=== PATIENT | female | born 1985 | race African-American/Black ===

== ENCOUNTER 2017-08-31 02:40 | Inpatient (IN) | payer OTHER ==
[2017-08-31 03:12] LABS: BILIRUBIN,URINE NEGATIVE (NEG); CLARITY,URINE CLEAR; COLOR,URINE YELLOW; GLUCOSE,URINE NEGATIVE (NEG); NITRITE,URINE NEGATIVE (NEG); PROTEIN,URINE NEGATIVE (NEG-TRACE)
[2017-08-31 03:17] LABS: BACTERIA,URINE FEW /HPF (0-FEW); RBC,URINE OCC /HPF (0-2); SQUAMOUS EPITHELIAL CELL,UR MOD /LPF
[2017-08-31 03:18] LABS: BARBITURATES NEG (NEG); BENZODIAZEPINES NEG (NEG); CANNABINOIDS POS (NEG); COCAINE NEG (NEG); METHADONE NEG (NEG); OPIATES NEG (NEG); PHENCYCLIDINE NEG (NEG)
[2017-08-31 03:19] LABS: AMPHETAMINE/METHAMPHETAMINE NEG (NEG); ETHANOL, URINE NEG (NEG)
[2017-08-31] MEDS ORDERED: IV RINGERS,LACTATED 1000ML 1,000 ML IV (04:14)
[2017-08-31 04:15] LABS: NEG OBC AMNIO NEG; POS OBC AMNIO POS
[2017-08-31 04:16] LABS: AMNIO PT POSITIVE
[2017-08-31 05:08] LABS: HEMOGLOBIN 11.9 g/dL (12.0-15.5); MEAN CORPUSCULAR HEMOGLOBIN 31 pg (25-35); MEAN CORPUSCULAR HGB CONC 35 g/dL (31-37); MEAN CORPUSCULAR VOLUME 89 fL (79-100); PLATELET COUNT 212 x10^3/uL (140-400); RED BLOOD COUNT 3.84 x10^6/uL (3.50-5.40); RED CELL DISTRIBUTION WIDTH 13.1 % (11.5-14.5); WHITE BLOOD COUNT 6.6 x10^3/uL (4.0-11.0)
[2017-08-31] MEDS: IV RINGERS,LACTATED 1000ML 1,000 ML IV ×3 (07:30→18:38)
[2017-08-31] MEDS ORDERED: ZOLPIDEM 5 MG TABLET. PO (09:15)
[2017-08-31] MEDS ORDERED: OXYTOCIN 30 UNIT/500 ML PREMIX 500 ML IV (09:15)
[2017-08-31] MEDS ORDERED: diphenhydrAMINE ORAL ELIXIR 12.5 MG/5 ML ML PO (09:15)
[2017-08-31] MEDS ORDERED: MAG HYDROX/ALUMINUM HYD/SIMETH 30 ML ORAL.SUSP PO (09:15)
[2017-08-31] MEDS ORDERED: MMR per PROTOCOL. MC (09:15)
[2017-08-31] MEDS ORDERED: HYDROCORTISONE 1% TOPICAL OINTMENT 30GM TUBE. TP (09:15)
[2017-08-31] MEDS ORDERED: 0.9 % SODIUM CHLORIDE 10 ML DISP.SYRIN. IV (09:15)
[2017-08-31] MEDS ORDERED: ONDANSETRON PF 4 MG/2 ML VIAL. (09:44)
[2017-08-31] MEDS ORDERED: FAMOTIDINE 20 MG/2 ML VIAL (09:44)
[2017-08-31] MEDS ORDERED: DEXAMETHASONE SOD PHOS 20 MG/5 ML VIAL. (09:44)
[2017-08-31] MEDS ORDERED: MORPHINE PF 5 MG/10 ML VIAL. (09:44)
[2017-08-31] MEDS ORDERED: OXYTOCIN 10 UNIT/ML VIAL. (09:44)
[2017-08-31] MEDS ORDERED: fentaNYL PF VIAL 100 MCG/2 ML VIAL (09:44)
[2017-08-31] MEDS ORDERED: METOCLOPRAMIDE HCL 10 MG/2 ML VIAL. (09:44)
[2017-08-31] MEDS ORDERED: PHENYLEPHRINE 10 MG/ML VIAL. ×2 (09:44→09:52)
[2017-08-31] MEDS: CITRIC ACID/SODIUM CITRATE 30 ML SOLUTION. PO (11:01)
[2017-08-31] MEDS: ONDANSETRON PF 4 MG/2 ML VIAL. IV ×2 (12:36→12:42)
[2017-08-31] MEDS: KETOROLAC 30 MG/ML INJ. IV ×2 (12:37→23:45)
[2017-08-31 14:29] LABS: HIV ANTIBODY Non Reactive (Non Reactive)
[2017-08-31] MEDS: FERROUS SULFATE 325 MG TABLET. PO (17:00)
[2017-08-31 17:06] LABS: HEP B SURFACE AG Negative (Negative)
[2017-08-31 20:11] LABS: RUBELLA IGG ANTIBODY 4.37 index (Immune >0.99)
[2017-09-01 00:14] LABS: RPR Non Reactive (Non Reactive)
[2017-09-01] MEDS: KETOROLAC 30 MG/ML INJ. IV (06:21)
[2017-09-01] MEDS: IBUPROFEN 600 MG TABLET. PO ×2 (12:27→20:10)
[2017-09-01] MEDS: oxyCODONE/APAP 5/325 1 TAB TABLET PO ×2 (12:29→20:30)
[2017-09-02] MEDS: IBUPROFEN 600 MG TABLET. PO ×4 (03:50→21:43)
[2017-09-02] MEDS: oxyCODONE/APAP 5/325 1 TAB TABLET PO ×4 (03:50→21:52)
[2017-09-02] MEDS: DOCUSATE SODIUM 100 MG CAPSULE. PO ×2 (09:53→21:43)
[2017-09-03] MEDS: oxyCODONE/APAP 5/325 1 TAB TABLET PO (05:53)
[2017-09-03] MEDS: IBUPROFEN 600 MG TABLET. PO ×3 (05:54→13:46)
== END 2017-09-03 15:30 | disposition home or self-care (01) | DRG 766 ==
LOC: 3 SO LND 02:40 → 3 NORTH 13:34
PROC: 10D00Z1 Extraction of Products of Conception, Low, Open Approach (ICD-10-PCS; principal; 2017-08-31)
PROC: 0DNW0ZZ Release Peritoneum, Open Approach (ICD-10-PCS; 2017-08-31)
DX: O60.14X0 Preterm labor third trimester with preterm delivery third trimester, not applicable or unspecified (principal); K66.0 Peritoneal adhesions (postprocedural) (postinfection); O99.62 Diseases of the digestive system complicating childbirth; Z3A.35 35 weeks gestation of pregnancy; Z37.0 Single live birth
CPT/HCPCS: 36415; 80307; 81001; 84112; 85027; 86593; 86703; 86762; 86850; 86900; 86901; 87086; 87340; 88307; G0378; G0379; J0690; J1100; J1885; J2270; J2405; J2590; J2765; J3010; J7120; S0028

== ENCOUNTER 2020-12-24 08:27 | Emergency (ER) | payer MEDICAID, OTHER ==
[~2020-12-24] VITALS: Ht 170.2 cm; Wt 109.4 kg
[2020-12-24 08:40] VITALS: BP 161/103
[2020-12-24] MEDS ORDERED: FLUT9.9S NS (09:00)
--- NOTE | 2020-12-24 09:03 | PHYS DOC ---
Past Medical History Past Medical History: No Pertinent History Past Surgical History: No Surgical History Smoking Status: Never Smoker Alcohol Use: None General Adult EDM: Chief Complaint: DENTAL PROBLEM HPI: HPI: 35-year-old -[place] female with no significant past medical history presents the ED with complaints of left anterior neck pain with associated jaw pain and nasal congestion for the past 2 days. Patient states she initially thought she had a dental infection but has no dental pain, pain over wisdom tooth or sensitivity to hot or cold when eating. Review of Systems: Review of Systems: Constitutional: Denies fever or chills. [] Eyes: Denies change in visual acuity. [] HENT: Denies rhinorrhea or sore throat. [] Respiratory: Denies cough or shortness of breath or hemoptysis Cardiovascular: Denies chest pain or edema. [] GI: Denies abdominal pain, nausea, vomiting, : Denies dysuria or vaginal bleeding Musculoskeletal: Denies back pain or joint pain. [] Integument: Denies rash or diaphoresis Neurologic: Denies headache, nuchal rigidity, focal weakness or sensory change s. [] Endocrine: Denies polyuria or polydipsia. [] Lymphatic: Denies swollen glands. [] Psychiatric: Denies depression or anxiety. [] Heart Score: C/O Chest Pain: No Risk Factors: Risk Factors: DM, Current or recent (<one month) smoker, HTN, HLP, family hi story of CAD, obesity. Risk Scores: Score 0 - 3: 2.5% MACE over next 6 weeks - Discharge Home Score 4 - 6: 20.3% MACE over next 6 weeks - Admit for Clinical Observation Score 7 - 10: 72.7% MACE over next 6 weeks - Early Invasive Strategies Allergies: Allergies: Allergies Coded Allergies Type Severity Reaction Last Updated Verified No Known Drug Allergies 08/31/17 No Physical Exam: PE: Constitutional: Well developed, well nourished, no acute distress, non-toxic appearance. HENT: Normocephalic, atraumatic, normal/patent oropharynx no exudates, bilateral maxillary sinus pressure on exam, normal TM bilaterally, Eyes: EOMI, conjunctiva normal, no discharge, no tongue elevation Neck: Normal range of motion, supple, mild left anterior cervical lymphadenopathy, no swelling or brawny neck Cardiovascular: S1/2 present, regular rhythm Lungs & Thorax: Speaking in full sentences, bilateral equal chest rise, no tachypnea or increased work of breathing, nasal voice Abdomen: soft, no tenderness, Skin: Warm, dry, Extremities: No tenderness, no cyanosis, Neurologic: Alert and oriented X 3, no focal deficits noted. [] Psychologic: Affect normal, judgement normal, mood normal. [] Current Patient Data: Vital Signs: Vital Signs Date Time Temp Pulse Resp B/P (MAP) Pulse Ox O2 Delivery O2 Flow Rate FiO2 12/24/20 08:40 97.8 85 20 161/103 (122) 97 Room Air 97.8 EKG: EKG: [] Radiology/Procedures: Radiology/Procedures: [] Course & Med Decision Making: Course & Med Decision Making Pertinent Labs and Imaging studies reviewed. (See chart for details) Concern for acute upper respiratory infection, suspect viral versus allergic sinusitis in the setting of mild lymphadenopathy, normal oropharynx. Will treat with Flonase and [id number] analgesia. Will discharge home with strict ED return precautions were given for fever, nuchal rigidity, headache or neurologic deficits. Encouraged urgent outpatient follow-up with PMD and ENT. Life-threatening processes were considered but are low suspicion at this time, given history, physical exam and ED workup. Pt was educated on all prescription medications and adverse effects. All patient's questions were answered and pt was stable at time of discharge. Life/limb-threatening differential includes but is not limited to, jose r's angina, peritonsillar abscess, retropharyngeal abscess, epiglottitis, bacterial tracheitis, uvulitis, sepsis, mastoiditis, traumatic injury, carotid/vertebral dissection, intracranial aneurysms or neurologic process. I spoken with the patient and her caregivers. I explained the patient's condition, diagnoses and treatment plan based on the information available to me at this time. I have answered the patient and her caregiver's questions and addressed any concerns. The patient and her caregivers have a good understanding of patient's diagnosis, condition and treatment plan as can be expected at this point. Vital signs have been stable. Patient's condition is stable and appropriate for discharge from the emergency department. Patient will pursue further outpatient evaluation with primary care physician or other designated or consulting physician as outlined in the discharge instructions. The patient and/or caregivers are agreeable to this plan of care and follow-up instructions have been explained in detail. The patient and/or caregivers have received these instructions in written form and have expressed an understanding of the discharge instructions. The patient and/or caregivers are aware that any significant change of condition or worsening of symptoms should prompt immediate return to this or the closest emergency department or call to 1. Olivia Disclaimer: Olivia Disclaimer: This electronic medical record was generated, in whole or in part, using a voice recognition dictation system. Departure Departure Impression: Primary Impression: URI (upper respiratory infection) Additional Impressions: Sinusitis, acute Left cervical lymphadenopathy Uncontrolled hypertension Disposition: HOME / SELF CARE / HOMELESS Condition: STABLE Referrals: NO PCP (PCP) Follow-up with your primary care physician in 24 to 48 hours OR FOLLOW UP WITH FAMILY MEDICINE: [address] [facility], [facility] [address] [place] [address] Patient Instructions: Hypertension, Sinusitis Additional Instructions: FOLLOW UP WITH PCP IN 1-2 DAYS FOR BLOOD PRESSURE CHECK FOLLOW UP WITH ENT: FOR DEFINITIVE MANAGEMENT OF SINUSITIS/URI Otolaryngology [address] [facility], [address] [place] [address] [employer] [facility] [address] [place] [id number] EMERGENCY DEPARTMENT GENERAL DISCHARGE INSTRUCTIONS Thank you for coming to [facility] Emergency Department (ED) today and trusting us with you care. We trust that you had a positive experience in our Emergency Department. If you wish to speak to the department management, you may call the Director at [phone]. YOUR FOLLOW UP INSTRUCTIONS ARE FOLLOWS: 1. Do you have a private Doctor? If you do not have a private doctor, please ask for a resource list of physicians or clinics that may be able to assist you with follow up care. 2. The Emergency Physicain has interpreted your x-rays. The X-Ray specialist will also review them. If there is a change in the findings, you will be notified in 48 hours when at all possible. 3. A lab test or culture has been done, your results will be reviewed and you will be notified if you need a change in treatment. ADDITIONAL INSTRUCTIONS AND INFORMATION: 1. Your care today has been supervised by a physician who is specially trained in emergency care. Many problems require more than one evaluation for a complete diagnosis and treatment. We recommend that you schedule your follow up appointment as recommended to ensure complete treatment of you illness or injury. If you are unable to obtain follow up care and continue to have a problem, or if your condition worsens, we recommend that you return to the ED. 2. We are not able to safely determine your condition over the phone nor are we able to give sound medical advice over the phone. For these safety reasons, if you call for medical advice we will ask you to come to the ED for further evaluation. 3. If you have any questions regarding these discharge instructions please call the ED at [phone]. SAFETY INFORMATION: In the interest of safety, wellness, and injury prevention; we encourage you to wear your sealbelt, if you smoke; quite smoking, and we encourage family to use a prote ctive helmet for bicycling and other sporting events that present an increased risk for head injury. IF YOUR SYMPTOMS WORSEN OR NEW SYMPTOMS DEVELOP, OR YOU HAVE CONCERNS ABOUT YOUR CONDITION; OR IF YOUR CONDITION WORSENS WHILE YOU ARE WAITING FOR YOUR FOLLOW UP APPOINTMENT; EITHER CONTACT YOUR PRIMARY CARE DOCTOR, THE PHYSICIAN WHOSE NAME AND NUMBER YOU WERE GIVEN, OR RETURN TO THE ED IMMEDIATELY. Scripts Fluticasone Propionate (Flonase Allergy Relief) 9.9 Ml [place].susp 2 SPRAYS NS DAILY for 10 Days, #1 UNIT 0 Refills Prov: RUSTY CROWELL DO 12/24/20 RUSTY CROWELL DO Dec 24, 2020 09:03
== END 2020-12-24 09:19 | disposition home or self-care (01) ==
LOC: ER 08:27
DX: J06.9 Acute upper respiratory infection, unspecified (principal); J32.9 Chronic sinusitis, unspecified; R59.0 Localized enlarged lymph nodes; I10 Essential (primary) hypertension
CPT/HCPCS: 99283